=== PATIENT | female | born 1945 | race Caucasian/White ===

== ENCOUNTER → 2020-12-18 | Outpatient (CLI) | payer MEDICARE, OTHER ==
--- NOTE | 2020-12-18 10:53 | REPPI ---
INDICATION: J45.20 MILD INTERMITTENT ASTHMA, UNCOMPLICATED. COMPARISON: No comparison radiographs. TECHNIQUE: Two views.. FINDINGS: The lungs are somewhat hyperinflated but free of infiltrate. Pleural angles are sharp. Heart size is mildly enlarged.. Cardiothoracic ratio is 53.2%. The thoracic aorta is tortuous. There are degenerative disc changes in the thoracic spine. IMPRESSION: Hyperinflation. Mild cardiomegaly. Otherwise no active disease.. <Electronically signed by Thomas Bateman > 12/18/20 [id number]
== END ==
LOC: M PLAIMG 10:34
PROVIDERS: ATTEND Nurse Practitioner Family
DX: J45.20 Mild intermittent asthma, uncomplicated (principal)

== ENCOUNTER → 2021-03-25 | Outpatient (CLI) | payer MEDICARE, OTHER ==
[~2021-03-25] MED LIST: ALBU0.63 INH; AMLO1TAB24 PO; B-12100010 PO; VITAE40CA PO; ZYRTTAB8 PO
[2021-03-25 14:11] VITALS: BP 177/110
--- NOTE | 2021-03-25 14:52 | REP ---
INDICATION: ABN LEFT BREAST/US GUIDED BX/CK CLIP PLACEMENT. COMPARISON: 03/17/2021. TECHNIQUE: ML and CC views left breast with tomosynthesis. FINDINGS: The patient is status post ultrasound-guided biopsy of a sonographic abnormality seen 03/17/2021, specifically dilated ducts with intervening mixed echotexture. The post biopsy images show a marking clip in the medial aspect of the inferior left breast which appears to be more medial than the mammographic abnormality identified 03/17/2021. Therefore I cannot be certain that the sonographic abnormality that was biopsied corresponds to the mammographic abnormality that was identified. I would recommend stereotactic biopsy of the mammographic abnormality. IMPRESSION: I cannot be certain that the sonographic abnormality that was biopsied corresponds to the mammographic abnormality that was identified. I would recommend stereotactic biopsy of the mammographic abnormality. RECOMMENDATION: I cannot be certain that the sonographic abnormality that was biopsied corresponds to the mammographic abnormality that was identified. I would recommend stereotactic biopsy of the mammographic abnormality. <Electronically signed by Wilber Luna > 03/25/21 [id number]
--- NOTE | 2021-03-25 17:20 | REP ---
INDICATION: ABN LEFT BREAST/US GUIDED BX. COMPARISON: 03/17/2021. TECHNIQUE: The procedure was performed by Dilma Harley [facility], under the direct supervision of Dr. Luna. The risks and benefits of the procedure were explained to the patient and an informed consent was obtained both verbally and written. Directly prior to the start of the procedure a formal time-out was completed in the procedure room. FINDINGS: Using ultrasound guidance the left breast tissue irregularity was localized. The skin was prepped and draped in a sterile fashion. Six mL of buffered lidocaine was used as a local anesthetic. Using ultrasound guidance a 14 gauge Bard Marquee coaxial needle biopsy system was inserted and advanced into the left breast irregularity. Nine core biopsy specimens were obtained and sent to pathology for further analysis. A marker clip was placed at the biopsy site. The patient tolerated the procedure well and there were no immediate complications. After the appropriate amount of monitored convalescence the patient was discharged from the department. IMPRESSION: 1. Ultrasound-guided left breast biopsy and micro clip placement. <Electronically signed by Dilma Harley > 03/25/21 1523 <Electronically signed by Wilber Luna > 03/25/21 [id number]
== END ==
LOC: M WHCPRO 07:13
PROVIDERS: ATTEND Nurse Practitioner Adult Health
DX: N60.12 Diffuse cystic mastopathy of left breast (principal); D48.62 Neoplasm of uncertain behavior of left breast

== ENCOUNTER → 2021-04-06 | Outpatient (REF) | payer MEDICARE, OTHER ==
[2021-04-06 12:33] LABS: APPEARANCE, URINE CLEAR (CLEAR); BACTERIA, URINE AUTO NEGATIVE (NEGATIVE); BILIRUBIN, URINE AUTO NEGATIVE (NEGATIVE); BLOOD, URINE BLOOD NEGATIVE (NEGATIVE); COLOR, URINE YELLOW (YELLOW); GLUCOSE, URINE (UA) AUTO NEGATIVE (NEGATIVE); KETONE, URINE AUTO NEGATIVE (NEGATIVE); LEUKOCYTE ESTERASE, URINE AUTO TRACE (NEGATIVE); NITRITE, URINE AUTO NEGATIVE (NEGATIVE); PROTEIN, URINE AUTO NEGATIVE (NEGATIVE); RBC, URINE AUTO 0 /HPF (0-3); SPECIFIC GRAVITY URINE AUTO 1.008 (1.002-1.035); SQUAMOUS EPITHELIAL CELL UR AU 0 /HPF (0-6); UROBILINOGEN, URINE AUTO 0.2 mg/dL (0.0-2.0); WBC, URINE AUTO 2 /HPF (0-3)
== END ==
LOC: M LAB REF 12:03
PROVIDERS: ATTEND Nurse Practitioner Adult Health
DX: R31.9 Hematuria, unspecified (principal)

== ENCOUNTER → 2021-04-23 | Outpatient (CLI) | payer MEDICARE, OTHER ==
[~2021-04-23] MED LIST changes: +ISOVUE-370 76% 100ML VIAL As Ordered ONE
--- NOTE | 2021-04-23 14:57 | REP ---
INDICATION: THORACIC AAA F/U ABN IMAG CXR COMPARISON: None. TECHNIQUE: Standard helical technique after the intravenous administration of 100 cc Isovue 370 FINDINGS: There is no mediastinal or hilar adenopathy. There are no pleural or pericardial effusions. Although not performed as a CT angiography examination the thoracic aorta appears ectatic and mildly tortuous without mary aneurysmal dilatation.. The imaged upper abdomen shows a small focal 1.2 cm sized area decreased density in the posterior segment of the right lobe of the liver. The imaged osseous structures are within normal limits for the patient's age. Evaluation of the lung cassidy shows multiple pulmonary nodules. The most notable are as follows 2 [id number] 7 mm and 4 mm size nodule in the right lower lobe, 4 mm size nodule in the right upper lobe, and a 4 mm size additional nodule in the right upper lobe. There are 3 nodules in the left lung 1 in the lower lobe which measures 7 mm and 3 in the lingula 2 measuring 6 mm and 1 measuring 5 mm. IMPRESSION: 1. Multiple pulmonary nodules as described above. According to the revised Fleischner society criteria three-month follow-up is recommended. 2. Thoracic aortic finding suggested as described above. 3. Focal area of low-density in the liver as described above. The etiology is uncertain. Pre and postcontrast enhanced hepatic MRI is recommended. <Electronically signed by John Ramos > 04/23/21 [id number]
== END ==
LOC: M RAD 13:55
PROVIDERS: ATTEND Nurse Practitioner Adult Health
DX: I71.2 Thoracic aortic aneurysm, without rupture (principal); R91.8 Other nonspecific abnormal finding of lung field
CPT/HCPCS: 71260; Q9967

== ENCOUNTER → 2021-06-08 | Outpatient (CLI) | payer MEDICARE, OTHER ==
[~2021-06-08] MED LIST changes: -ISOVUE-370 76% 100ML VIAL As Ordered ONE; +PROHANCE 279.3MG/ML 15ML VIAL As Ordered ONE
--- NOTE | 2021-06-08 11:22 | REP ---
INDICATION: LIVER LESION SEEN ON CT. COMPARISON: CT chest 04/23/2021. TECHNIQUE: Multiple sequences obtained in the axial coronal planes prior to and following the intravenous administration of 13 mL ProHance. FINDINGS: There is a nonenhancing cyst in the posterior segment of the right lobe of the liver measuring 9 mm in diameter, corresponding to the CT finding in the liver. No other liver abnormality is seen. The spleen is normal in size with no intrinsic abnormality. The adrenal glands demonstrate no mass. The pancreas is normal with no pancreatic duct dilatation. There is no biliary duct dilatation. No filling defect is seen in the gallbladder. No renal mass is seen. I see no adenopathy or free fluid in the abdomen. IMPRESSION: Nonenhancing benign cyst posterior segment right lobe of the liver corresponds to the nodule on the recent CT of the chest. No other significant abnormality. <Electronically signed by Wilber Luna > 06/08/21 111
== END ==
LOC: M RAD 09:20
PROVIDERS: ATTEND Nurse Practitioner Adult Health
DX: D37.6 Neoplasm of uncertain behavior of liver, gallbladder and bile ducts (principal)
CPT/HCPCS: 74183; A9576

== ENCOUNTER → 2021-08-11 | Outpatient (CLI) | payer MEDICARE, OTHER ==
[~2021-08-11] MED LIST changes: +ISOVUE-370 76% 100ML VIAL As Ordered ONE; -PROHANCE 279.3MG/ML 15ML VIAL As Ordered ONE
--- NOTE | 2021-08-11 14:50 | REP ---
INDICATION: LUNG NODULE F/U. COMPARISON: 04/23/2021. TECHNIQUE: CT chest performed following the intravenous administration of 100 cc of Isovue 370. Sagittal and coronal reconstruction images are performed. FINDINGS: Lungs: Ill-defined nodular density in the right upper lobe on image 40 remains stable, approximately 4 mm in maximum diameter. There is a new posterior right lower lobe 4 mm nodular density which is somewhat ill-defined as seen on image 45. There is new ill-defined 4 mm nodular density in the right middle lobe on image 69. There is a stable 5 mm nodular density in the lingula on image 60. There is stable ill-defined 4 mm nodular density in the inferior left lower lobe on image 89. Scattered diffuse interstitial and ill-defined confluent parenchymal opacities in the right middle lobe are unchanged. There are mild stable confluent ill-defined parenchymal opacities along the inferior aspect of the thoracic aorta and along the mediastinal border superiorly on the left, anteromedially. Mediastinum: No adenopathy. Danyell: No adenopathy. Axilla: No adenopathy. Pleura: No effusion. Heart: Mildly enlarged. Thoracic aorta: No aneurysm or dissection. There is stable ectasia. Upper abdominal structures: Right lobe liver cyst unchanged. Visualized osseous structures: There are degenerative changes of the spine without compression deformity. IMPRESSION: There is a new 4 mm nodule in the posterior right lower lobe and a new 4 mm nodular density in the right middle lobe. All other bilateral parenchymal opacities remain stable. Three month follow-up recommended. <Electronically signed by Wilber Luna > 08/11/21 1324
== END ==
LOC: M RAD 13:57
PROVIDERS: ATTEND Nurse Practitioner Adult Health
DX: R91.8 Other nonspecific abnormal finding of lung field (principal)
CPT/HCPCS: 71260; Q9967

== ENCOUNTER → 2022-03-14 | Outpatient (CLI) | payer MEDICARE, OTHER | LOC: M RAD 12:36 | PROVIDERS: ATTEND Nurse Practitioner Adult Health | DX: R91.8 Other nonspecific abnormal finding of lung field (principal) | CPT/HCPCS: 71260; Q9967 ==

== ENCOUNTER 2024-08-23 12:44 | Inpatient (IN) | payer MEDICARE, OTHER ==
[~2024-08-23] VITALS: Ht 157.5 cm; Wt 63.4 kg
[~2024-08-23 12:44] MED LIST changes: -ISOVUE-370 76% 100ML VIAL As Ordered ONE
[2024-08-23 13:23] LABS: HEMATOCRIT 41.5 % (36.0-47.0); MEAN CORPUSCULAR HEMOGLOBIN 29.9 pg (27.0-33.0); MEAN CORPUSCULAR HGB CONC 33.7 g/dl (32.0-36.5); MEAN CORPUSCULAR VOLUME 88.7 fl (80.0-96.0); PLATELET COUNT, AUTOMATED 229 10^3/uL (150-450); RED BLOOD COUNT 4.68 10^6/uL (4.00-5.40); WHITE BLOOD COUNT 21.4 10^3/uL (4.0-10.0)
[2024-08-23] MEDS: NS 1,000 ML IV ONE (13:48)
[2024-08-23 14:12] LABS: ALKALINE PHOSPHATASE 80 U/L (46-116); ALT/SGPT 21 U/L (7.0-40); AST/SGOT 15 U/L (<34); BILIRUBIN,DIRECT 0.5 MG/DL (<0.4); BLOOD UREA NITROGEN 52 MG/DL (9-23); CALCIUM LEVEL 9.4 MG/DL (8.3-10.6); CARBON DIOXIDE LEVEL 19 MMOL/L (20-31); CHLORIDE LEVEL 99 MMOL/L (98-107); CK-MB VALUE MASS < 1.0 NG/ML (<3.6); CREATININE FOR GFR 2.46 MG/DL (0.55-1.30); GLOMERULAR FILTRATION RATE 20.3 (>39); GLUCOSE, FASTING 92 MG/DL (74-106); POTASSIUM SERUM 4.2 MMOL/L (3.5-5.1); SODIUM LEVEL 131 MMOL/L (136-145); TOTAL PROTEIN 5.8 G/DL (5.7-8.2)
[2024-08-23 14:13] LABS: CPK CREATINE PHOSPHOKINASE 32 U/L (34-145); MB/CK RELATIVE INDEX 3.12 (< OR =4)
[2024-08-23 14:24] LABS: LYMPHOCYTES 7 % (16-44); METAMYELOCYTES 1 % (0-0); MONOCYTES 4 % (0-5); NEUTROPHILS 69 % (28-66); PLATELET ESTIMATE NORMAL (NORMAL)
[2024-08-23] MEDS: CEFEPIME HCL 2 GM in D5W MINI-BAG PLUS 50 ML IV ONE (14:43)
[2024-08-23] MEDS: NS 1,860 ML in IV 1 EA IV ONE (14:43)
[2024-08-23] MEDS ORDERED: ACETAMINOPHEN 325 MG TAB PO PRN (15:50)
[2024-08-23] MEDS ORDERED: BUDE10.32 IH (16:18)
[2024-08-23] MEDS ORDERED: VENTAER INH (16:18)
[2024-08-23] MEDS ORDERED: ATOR1TAB19 PO (16:18)
[2024-08-23] MEDS ORDERED: AMLO-354 PO (16:18)
[2024-08-23] MEDS ORDERED: AMLO-360 PO (16:18)
[2024-08-23] MEDS ORDERED: VITA400C56 PO (16:18)
[2024-08-23 16:47] LABS: D-DIMER QUANT 1.13 ug/mL (<0.5); INR 1.18; PARTIAL THROMBOPLASTIN TIME 31.8 SECONDS (24.8-34.2); PROTHROMBIN TIME 14.7 SECONDS (12.5-14.5)
[2024-08-23] MEDS: NS 1,000 ML IV SCH (16:55)
[2024-08-23 17:30] VITALS: BP 153/98; TEMP 98.2; O2SAT 97
[2024-08-23] MEDS: LACTOBACILLUS ACIDOPHILUS CAP (BACID) PO SCH (17:48)
[2024-08-23] MEDS: SYMBICORT 160/4.5MCG INHALER 6GM INH SCH (19:48)
[2024-08-23 19:49] VITALS: O2SAT 89
[2024-08-23 19:50] VITALS: BP 145/93; TEMP 97.7; O2SAT 90
[2024-08-23] MEDS ORDERED: CETI-24 PO (20:03)
[2024-08-23] MEDS ORDERED: HOME MED LIST COMPLETE! XX SCH (20:05)
[2024-08-23] MEDS: DOXYCYCLINE HYCLATE 100MG TABLET PO SCH (21:57)
[2024-08-23] MEDS: REMDESIVIR 200 MG in NS 250 ML IV ONE (21:58)
[2024-08-23] MEDS: HEPARIN SOD (PORCINE) 5000UNITS/ML 1ML VIAL/SYRINGE SC SCH (21:58)
[2024-08-24] VITALS (15 sets, daily range): BP systolic 107–111; BP diastolic 72; TEMP 97.5; O2SAT 78–95
[2024-08-24 05:48] LABS: HEMATOCRIT 38.3 % (36.0-47.0); HEMOGLOBIN 12.7 g/dl (12.0-15.5); MEAN CORPUSCULAR HEMOGLOBIN 29.7 pg (27.0-33.0); MEAN CORPUSCULAR HGB CONC 33.2 g/dl (32.0-36.5); MEAN CORPUSCULAR VOLUME 89.5 fl (80.0-96.0); PLATELET COUNT, AUTOMATED 223 10^3/uL (150-450); RED BLOOD COUNT 4.28 10^6/uL (4.00-5.40); WHITE BLOOD COUNT 12.7 10^3/uL (4.0-10.0)
[2024-08-24 06:15] LABS: ALBUMIN 1.9 G/DL (3.2-5.2); BILIRUBIN,TOTAL 0.5 MG/DL (0.3-1.2); CALCIUM LEVEL 7.9 MG/DL (8.3-10.6); CREATININE FOR GFR 0.99 MG/DL (0.55-1.30); GLOMERULAR FILTRATION RATE 58.1 (>39); POTASSIUM SERUM 3.8 MMOL/L (3.5-5.1); TOTAL PROTEIN 4.2 G/DL (5.7-8.2)
[2024-08-24] MEDS: cefTRIAXone SOD 2 GM in D5W MINI-BAG PLUS 50 ML IV SCH (08:11)
[2024-08-24] MEDS: REMDESIVIR 100 MG in NS 250 ML IV SCH (21:30)
[2024-08-25] VITALS (7 sets, daily range): BP systolic 108–119; BP diastolic 75–82; TEMP 97.2–98.6; O2SAT 88–95
[2024-08-25 06:39] LABS: HEMATOCRIT 40.4 % (36.0-47.0); HEMOGLOBIN 13.6 g/dl (12.0-15.5); MEAN CORPUSCULAR HEMOGLOBIN 29.8 pg (27.0-33.0); MEAN CORPUSCULAR HGB CONC 33.7 g/dl (32.0-36.5); MEAN CORPUSCULAR VOLUME 88.4 fl (80.0-96.0); PLATELET COUNT, AUTOMATED 253 10^3/uL (150-450); RED BLOOD COUNT 4.57 10^6/uL (4.00-5.40); WHITE BLOOD COUNT 9.7 10^3/uL (4.0-10.0)
[2024-08-25 07:13] LABS: ALBUMIN 2.1 G/DL (3.2-5.2); ALKALINE PHOSPHATASE 106 U/L (46-116); ALT/SGPT 17 U/L (7.0-40); AST/SGOT 39 U/L (<34); BILIRUBIN,TOTAL 0.3 MG/DL (0.3-1.2); BLOOD UREA NITROGEN 38 MG/DL (9-23); CALCIUM LEVEL 9.1 MG/DL (8.3-10.6); CARBON DIOXIDE LEVEL 20 MMOL/L (20-31); CHLORIDE LEVEL 111 MMOL/L (98-107); CREATININE FOR GFR 0.67 MG/DL (0.55-1.30); GLOMERULAR FILTRATION RATE > 60.0 (>39); GLUCOSE, FASTING 117 MG/DL (74-106); POTASSIUM SERUM 3.9 MMOL/L (3.5-5.1); SODIUM LEVEL 139 MMOL/L (136-145); TOTAL PROTEIN 4.6 G/DL (5.7-8.2)
[2024-08-25] MEDS: ATORVASTATIN 10 MG TAB PO SCH (09:25)
[2024-08-26 04:07] VITALS: BP 114/77; TEMP 97.5; O2SAT 93
[2024-08-26 06:23] LABS: HEMATOCRIT 40.4 % (36.0-47.0); HEMOGLOBIN 13.5 g/dl (12.0-15.5); MEAN CORPUSCULAR HEMOGLOBIN 29.7 pg (27.0-33.0); MEAN CORPUSCULAR HGB CONC 33.4 g/dl (32.0-36.5); PLATELET COUNT, AUTOMATED 284 10^3/uL (150-450); RED BLOOD COUNT 4.54 10^6/uL (4.00-5.40); WHITE BLOOD COUNT 10.6 10^3/uL (4.0-10.0)
[2024-08-26 06:54] LABS: ALKALINE PHOSPHATASE 125 U/L (46-116); ALT/SGPT 23 U/L (7.0-40); AST/SGOT 57 U/L (<34); BILIRUBIN,TOTAL 0.3 MG/DL (0.3-1.2); BLOOD UREA NITROGEN 42 MG/DL (9-23); CARBON DIOXIDE LEVEL 24 MMOL/L (20-31); CHLORIDE LEVEL 111 MMOL/L (98-107); CREATININE FOR GFR 0.69 MG/DL (0.55-1.30); GLOMERULAR FILTRATION RATE > 60.0 (>39); GLUCOSE, FASTING 120 MG/DL (74-106); SODIUM LEVEL 143 MMOL/L (136-145); TOTAL PROTEIN 4.4 G/DL (5.7-8.2)
[2024-08-26 12:00] VITALS: BP 114/75; TEMP 98.1; O2SAT 94
[2024-08-26 13:00] VITALS: O2SAT 93
[2024-08-26 19:41] VITALS: BP 122/78; TEMP 97; O2SAT 92
[2024-08-26] MEDS: REMDESIVIR 100 MG in NS 100 ML IV SCH (21:32)
[2024-08-27 03:59] VITALS: BP 130/90; TEMP 98.1; O2SAT 93
[2024-08-27 06:01] LABS: HEMATOCRIT 38.8 % (36.0-47.0); MEAN CORPUSCULAR HEMOGLOBIN 29.3 pg (27.0-33.0); MEAN CORPUSCULAR HGB CONC 33.5 g/dl (32.0-36.5); MEAN CORPUSCULAR VOLUME 87.4 fl (80.0-96.0); PLATELET COUNT, AUTOMATED 276 10^3/uL (150-450); RED BLOOD COUNT 4.44 10^6/uL (4.00-5.40); WHITE BLOOD COUNT 10.8 10^3/uL (4.0-10.0)
[2024-08-27 06:27] LABS: ALKALINE PHOSPHATASE 117 U/L (46-116); ALT/SGPT 25 U/L (7.0-40); AST/SGOT 64 U/L (<34); BILIRUBIN,TOTAL 0.3 MG/DL (0.3-1.2); BLOOD UREA NITROGEN 45 MG/DL (9-23); CALCIUM LEVEL 8.8 MG/DL (8.3-10.6); CARBON DIOXIDE LEVEL 23 MMOL/L (20-31); CHLORIDE LEVEL 112 MMOL/L (98-107); CREATININE FOR GFR 0.71 MG/DL (0.55-1.30); GLOMERULAR FILTRATION RATE > 60.0 (>39); GLUCOSE, FASTING 139 MG/DL (74-106); POTASSIUM SERUM 4.3 MMOL/L (3.5-5.1); SODIUM LEVEL 142 MMOL/L (136-145); TOTAL PROTEIN 4.2 G/DL (5.7-8.2)
[2024-08-27] MEDS: LevoFLOXacin 750 MG TABLET PO SCH (08:09)
[2024-08-27] MEDS ORDERED: CEFDINIR 300 MG CAP (OMNICEF) PO SCH (09:00)
[2024-08-27] MEDS ORDERED: PRED10TA2 PO (11:04)
[2024-08-27] MEDS ORDERED: LEVO1TAB40 PO (11:04)
[2024-08-27] MEDS ORDERED: LASI20TA3 PO (11:09)
[2024-08-27] MEDS ORDERED: NORV5TAB PO (11:09)
[2024-08-27 12:00] VITALS: BP 130/81; TEMP 97; O2SAT 94
== END 2024-08-27 13:09 | disposition home health service (06) | DRG 871 ==
LOC: M ED 12:44 → M ED INP 15:50 → M MSPAV 17:17
PROVIDERS: ADMIT Internal Medicine; ATTEND Internal Medicine
DX: A40.9 Streptococcal sepsis, unspecified (principal); J96.01 Acute respiratory failure with hypoxia; J15.9 Unspecified bacterial pneumonia; U07.1 COVID-19; I50.32 Chronic diastolic (congestive) heart failure; N17.9 Acute kidney failure, unspecified; J45.909 Unspecified asthma, uncomplicated; I27.20 Pulmonary hypertension, unspecified; I11.0 Hypertensive heart disease with heart failure; E78.5 Hyperlipidemia, unspecified; R91.8 Other nonspecific abnormal finding of lung field; Z79.899 Other long term (current) drug therapy

== ENCOUNTER → 2024-09-18 | Outpatient (CLI) | payer MEDICARE, OTHER ==
[~2024-09-18] MED LIST changes: +AMLO-354 PO; +AMLO-360 PO; +ATOR1TAB19 PO; +BUDE10.32 IH; +CETI-24 PO; +LASI20TA3 PO; +LEVO1TAB40 PO; +NORV5TAB PO; +PRED10TA2 PO; +VENTAER INH; +VITA400C56 PO
== END ==
LOC: M WUC 09:27
PROVIDERS: ATTEND Nurse Practitioner Family
DX: J18.8 Other pneumonia, unspecified organism (principal); J90 Pleural effusion, not elsewhere classified

== ENCOUNTER → 2024-10-22 | Outpatient (CLI) | payer MEDICARE, OTHER | LOC: M WUC 10:43 | PROVIDERS: ATTEND Nurse Practitioner Adult Health | DX: J18.1 Lobar pneumonia, unspecified organism (principal) ==

== ENCOUNTER → 2024-12-02 | Outpatient (CLI) | payer MEDICARE, OTHER | LOC: M WUC 10:28 | PROVIDERS: ATTEND Nurse Practitioner Adult Health | DX: J18.9 Pneumonia, unspecified organism (principal) ==

== ENCOUNTER → 2024-12-19 | Outpatient (CLI) | payer MEDICARE, OTHER | LOC: M RAD 13:13 | PROVIDERS: ATTEND Internal Medicine Pulmonary Disease | DX: R91.8 Other nonspecific abnormal finding of lung field (principal) ==

== ENCOUNTER → 2025-07-09 | Outpatient (CLI) | payer MEDICARE, OTHER ==
[~2025-07-09] MED LIST changes: +AMLO-319 PO; +AMLO-325 PO; -AMLO-354 PO; -AMLO-360 PO
== END ==
LOC: M PLAIMG 10:30
PROVIDERS: ATTEND Internal Medicine Pulmonary Disease
DX: R91.8 Other nonspecific abnormal finding of lung field (principal)